=== PATIENT | male | born 1950 | race Caucasian/White ===

== ENCOUNTER → 2018-01-04 | Outpatient (CLI) | payer MEDICARE, OTHER ==
[2015-12-06 13:55] VITALS: BP 157/68
[~2018-01-04] MED LIST: ALLO300T PO; APIX5TAB PO; ASPI325T8 PO; FLEC100T PO; METO25TA4 PO
--- NOTE | 2018-01-04 14:43 | CARD ---
MR#: [id number] Date of Study: 01/04/2018 Ordering Physician: KATARINA CHRISTINE, Referring Physician: KATARINA CHRISTINE, Tech: Tonia Navarro [facility] APPROVED REPORT EXAM: Two-dimensional and M-mode echocardiogram with Doppler and color Doppler. Other Information Quality : Technically LimitedHR: 65bpm Rhythm : Atrial FibrillationTechnically limited study due to body habitus. INDICATION Atrial Fibrillation 2D DIMENSIONS RVDd3.9 (2.9-3.5cm)IVSd1.3 (0.7-1.1cm) Aortic Root(2D)3.5 (2.0-3.7cm)LVDd5.3 (3.9-5.9cm) LVOT Diameter2.2 (1.8-2.4cm)PWd1.0 (0.7-1.1cm) LVDs3.6 (2.5-4.0cm)FS (%) 31.0 % SV77.8 mlLVEF(%)58.3 (>50%) M-Mode DIMENSIONS RVDd3.07 (2.1-3.2cm)Left Atrium(MM)5.51 (2.5-4.0cm) IVSd1.27 (0.7-1.1cm)Aortic Root3.32 (2.2-3.7cm) LVDd5.37 (4.0-5.6cm)PWd1.10 (0.7-1.1cm) IVSs1.60 cmFS (%) 29 % LVDs3.81 (2.0-3.8cm)ESV(Teich)62.2 ml PWs1.47 cmLVEF(%)56 (>50%) Aortic Valve AoV Peak Nj.94.4cm/sAoV VTI17.5cm AO Peak GR.3.6mmHgLVOT Peak Nj.64.3cm/s AO Mean GR.2mmHgAVA (VMAX)2.52cm2 EVELYN (VTI)2.50cm2 Mitral Valve MV E Iezwjcdt87.5cm/sMV E Peak Gr.2mmHg MV DECEL [id number] A Pkgfoiua96.2cm/s MV E Mean Gr.0mmHgE/A Ratio2.7 MV A Hmrszyke71gv Pulmonary Valve PV Peak Leepykni84.2cm/s Tricuspid Valve TR P. Tuhccqhj434dk/sRAP JQIEYXAE3xdCg TR Peak Gr.21ebYxDJPI82qpFt LEFT VENTRICLE The left ventricle is normal size. There is mild concentric left ventricular hypertrophy. The left ve ntricular systolic function is normal and the ejection fraction is within normal range. The Ejection Fraction is 55-60%. There is normal LV segmental wall motion. Unable to assess diastolic function due to atrial fibrillation. RIGHT VENTRICLE The right ventricle is mildly dilated. There is normal right ventricular wall thickness. The right ve ntricular systolic function is normal. ATRIA The left atrium is mildly dilated. The right atrium is mildly dilated. The interatrial septum is inta ct with no evidence for an atrial septal defect or patent foramen ovale as noted on 2-D or Doppler im aging. AORTIC VALVE The aortic valve is thickened but opens well. The aortic valve is trileaflet. Doppler and Color Flow revealed no significant aortic regurgitation. There is no significant aortic valvular stenosis. MITRAL VALVE The mitral valve is thickened but opens well. There is no evidence of mitral valve prolapse. There is no mitral valve stenosis. Doppler and Color Flow revealed trace mitral valve regurgitation. TRICUSPID VALVE The tricuspid valve is normal in structure and function. Doppler and Color Flow revealed trace tricus pid regurgitation. The PA pressure was estimated at 26 mmHg. There is no tricuspid valve prolapse or vegetation. There is no tricuspid valve stenosis. PULMONIC VALVE The pulmonary valve is normal in structure and function. Doppler and Color Flow revealed no pulmonic valvular regurgitation. There is no pulmonic valvular stenosis. GREAT VESSELS The aortic root is normal in size. The ascending aorta is normal in size. PERICARDIAL EFFUSION There is no evidence of significant pericardial effusion. Critical Notification Critical Value: No <Conclusion> The left ventricle is normal size. The left ventricular systolic function is normal and the ejection fraction is within normal range. The Ejection Fraction is 55-60%. There is mild concentric left ventricular hypertrophy. There is no significant aortic valvular stenosis. Doppler and Color Flow revealed no significant aortic regurgitation. Doppler and Color Flow revealed trace mitral valve regurgitation. Doppler and Color Flow revealed trace tricuspid regurgitation. The PA pressure was estimated at 26 mmHg. Signed by : Maxwell Simon MD Electronically Approved : 01/04/2018 14:42:06
== END | disposition home or self-care (01) ==
LOC: ECHO 12:39
PROVIDERS: ATTEND Internal Medicine Cardiovascular Disease
DX: I48.91 Unspecified atrial fibrillation (principal); I51.7 Cardiomegaly
CPT/HCPCS: 93306

== ENCOUNTER → 2019-09-19 | Outpatient (CLI) | payer MEDICARE, OTHER ==
[2015-12-06 13:55] VITALS: BP 157/68
--- NOTE | 2019-09-19 11:38 | CARD ---
MR#: [id number] Date of Study: 09/19/2019 Ordering Physician: KATARINA MARTINS, Referring Physician: KATARINA MARTINS, Tech: Michelle Chaidez APPROVED REPORT EXAM: Two-dimensional and M-mode echocardiogram with Doppler and color Doppler. Other Information Quality : FairHR: 57bpm Technically limited study due to body habitus. INDICATION Atrial Fibrillation RISK FACTORS Hypertension 2D DIMENSIONS RVDd3.6 (2.9-3.5cm)Left Atrium(2D)5.3 (1.6-4.0cm) IVSd1.3 (0.7-1.1cm)Aortic Root(2D)3.4 (2.0-3.7cm) LVDd5.7 (3.9-5.9cm)LVOT Diameter2.2 (1.8-2.4cm) PWd1.4 (0.7-1.1cm)LVDs3.9 (2.5-4.0cm) FS (%) 31.4 %SV93.7 ml LVEF(%)58.5 (>50%) Aortic Valve AoV Peak Nj.101.8cm/sAoV VTI23.4cm AO Peak GR.4.1mmHgLVOT Peak Nj.72.7cm/s LVOT VTI 16.84cmAO Mean GR.2mmHg EVELYN (VMAX)1.56lo4ACF (VTI)2.66cm2 Mitral Valve MV E Dqazoxla25.5cm/sMV DECEL IJOW788iv MV A Dupuzcjw33.8cm/sMV E Mean Gr.1mmHg MV PJZ96fxS/A Ratio2.1 MVA (PHT)3.95cm2 TDI E/Lateral E'5.9E/Medial E'7.1 Pulmonary Valve PV Peak Kutzzsss21.7cm/sPV Peak Grad.2mmHg Tricuspid Valve TR P. Dtqmbamv183zk/sRAP NDLYIJNZ5oiJx TR Peak Gr.43nwMcIOPU15xiNf LEFT VENTRICLE The left ventricle is normal size. There is mild to moderate concentric left ventricular hypertrophy. The left ventricular systolic function is normal and the ejection fraction is within normal range. T he Ejection Fraction is 50-55%. There is normal LV segmental wall motion. Tissue Doppler imaging reve als moderate left ventricular diastolic dysfunction. RIGHT VENTRICLE The right ventricle is mildly dilated. There is normal right ventricular wall thickness. The right ve ntricular systolic function is normal. ATRIA The left atrium is mildly to moderatey dilated. The right atrium is mildly dilated. The interatrial s eptum is intact with no evidence for an atrial septal defect or patent foramen ovale as noted on 2-D or Doppler imaging. AORTIC VALVE The aortic valve is thickened and mildly calcified. Doppler and Color Flow revealed no significant ao rtic regurgitation. There is no significant aortic valvular stenosis. MITRAL VALVE The mitral valve is normal in structure and function. There is no evidence of mitral valve prolapse. There is no mitral valve stenosis. Doppler and Color-flow revealed trace mitral regurgitation. TRICUSPID VALVE The tricuspid valve is normal in structure and function. Doppler and Color Flow revealed trace tricus pid regurgitation with an estimated PAP of 37 mmHg. There is no tricuspid valve stenosis. PULMONIC VALVE The pulmonic valve is not well visualized. Doppler and Color Flow revealed no pulmonic valvular regur gitation. There is no pulmonic valvular stenosis. GREAT VESSELS The aortic root is normal in size. The ascending aorta is normal in size. The IVC is normal in size a nd collapses >50% with inspiration. PERICARDIAL EFFUSION There is no evidence of significant pericardial effusion. Critical Notification Critical Value: No <Conclusion> The left ventricular systolic function is normal and the ejection fraction is within normal range. Th e Ejection Fraction is 50-55%. There is normal LV segmental wall motion. Tissue Doppler imaging reveals moderate left ventricular diastolic dysfunction. The right ventricle is mildly dilated. Signed by : Katarina Martins, Electronically Approved : 09/19/2019 11:37:41
== END ==
LOC: ECHO 09:03
PROVIDERS: ATTEND Internal Medicine Cardiovascular Disease
DX: I35.8 Other nonrheumatic aortic valve disorders (principal); I48.21 Permanent atrial fibrillation
CPT/HCPCS: 93306

== ENCOUNTER → 2020-11-12 | Outpatient (CLI) | payer MEDICARE ==
[2015-12-06 13:55] VITALS: BP 157/68
[2020-11-12 09:34] LABS: BASO # 0.1 x10^3/uL (0.0-0.2); BASO % 1 % (0-3); EOS # 0.1 x10^3/uL (0.0-0.7); EOS % 1 % (0-3); HEMATOCRIT 47.4 % (39.0-53.0); LYMPH # 1.9 x10^3/uL (1.0-4.8); LYMPH % 25 % (24-48); MEAN CORPUSCULAR HEMOGLOBIN 34 pg (25-35); MEAN CORPUSCULAR HGB CONC 34 g/dL (31-37); MEAN CORPUSCULAR VOLUME 102 fL (79-100); MONO # 0.7 x10^3/uL (0.0-1.1); MONO % 9 % (0-9); NEUT # 4.9 x10^3/uL (1.8-7.7); NEUT % 64 % (31-73); PLATELET COUNT 236 x10^3/uL (140-400); RED BLOOD COUNT 4.66 x10^6/uL (4.30-5.70); RED CELL DISTRIBUTION WIDTH 12.9 % (11.5-14.5); WHITE BLOOD COUNT 7.7 x10^3/uL (4.0-11.0)
[2020-11-12 10:01] LABS: ALBUMIN 3.5 g/dL (3.4-5.0); ALBUMIN/GLOBULIN RATIO 1.1 (1.0-1.7); CALCIUM 9.2 mg/dL (8.5-10.1); CREATININE 1.2 mg/dL (0.7-1.3); POTASSIUM 5.7 mmol/L (3.5-5.1); TOTAL BILIRUBIN 0.6 mg/dL (0.2-1.0); TOTAL PROTEIN 6.6 g/dL (6.4-8.2)
[2020-11-12 10:02] LABS: CHOLESTEROL/HDL RATIO 3.1
--- NOTE | 2020-11-12 13:33 | CARD ---
MR#: [id number] Date of Study: 11/12/2020 Ordering Physician: KATARINA CHRISTINE, Referring Physician: KATARINA CHRISTINE, Tech: Elva Simpson [facility] APPROVED REPORT EXAM: Two-dimensional and M-mode echocardiogram with Doppler and color Doppler. Other Information Quality : Technically LimitedHR: 62bpm Rhythm : Atrial Fibrillation INDICATION Atrial Fibrillation RISK FACTORS Hypertension Obesity 2D DIMENSIONS RVDd3.6 (2.9-3.5cm)Left Atrium(2D)5.7 (1.6-4.0cm) IVSd1.2 (0.7-1.1cm)Aortic Root(2D)3.6 (2.0-3.7cm) LVDd5.0 (3.9-5.9cm)LVOT Diameter2.4 (1.8-2.4cm) PWd1.6 (0.7-1.1cm)LVDs3.2 (2.5-4.0cm) FS (%) 35.7 %SV77.2 ml Aortic Valve AoV Peak Nj.99.4cm/sAoV VTI25.6cm AO Peak GR.4.0mmHgLVOT Peak Nj.78.7cm/s AO Mean GR.2mmHgAVA (VMAX)3.57cm2 Mitral Valve MV E Ofewrsjk48.3cm/sMV DECEL ULLO487so MV A Ygqalemw74.1cm/sE/A Ratio5.4 Pulmonary Valve PV Peak Cgbwakug45.6cm/s Tricuspid Valve TR P. Jqvctqhi393cn/sTR Peak Gr.17mmHg LEFT VENTRICLE The left ventricle is normal size. There is trace to mild concentric left ventricular hypertrophy. Th e left ventricular systolic function is normal and the ejection fraction is within normal range. LV ejection fraction of 50 to 55%. There is normal LV segmental wall motion. RIGHT VENTRICLE The right ventricle is normal size. There is normal right ventricular wall thickness. The right ventr icular systolic function is normal. ATRIA The left atrium is moderately dilated. The right atrium is mildly dilated. The interatrial septum is intact with no evidence for an atrial septal defect or patent foramen ovale as noted on 2-D or Dopple r imaging. AORTIC VALVE The aortic valve is normal in structure and function. Doppler and Color Flow revealed no significant aortic regurgitation. There is no significant aortic valvular stenosis. MITRAL VALVE The mitral valve is normal in structure and function. There is no evidence of mitral valve prolapse. There is no mitral valve stenosis. Doppler and Color-flow revealed trace to mild mitral regurgitation . TRICUSPID VALVE The tricuspid valve is normal in structure and function. Doppler and Color Flow revealed trace tricus pid regurgitation. Estimated PAP 20 mmHg. There is no tricuspid valve stenosis. PULMONIC VALVE The pulmonary valve is normal in structure and function. Doppler and Color Flow revealed no pulmonic valvular regurgitation. GREAT VESSELS The aortic root is normal in size. The ascending aorta is normal in size. The IVC is normal in size a nd collapses >50% with inspiration. PERICARDIAL EFFUSION There is no evidence of significant pericardial effusion. Critical Notification Critical Value: No <Conclusion> The left ventricle is normal size. The left ventricular systolic function is normal and the ejection fraction is within normal range. LV ejection fraction of 50 to 55%. There is trace to mild concentric left ventricular hypertrophy. Doppler and Color Flow revealed no significant aortic regurgitation. There is no significant aortic valvular stenosis. Doppler and Color-flow revealed trace to mild mitral regurgitation. Doppler and Color Flow revealed trace tricuspid regurgitation. Estimated PAP 20 mmHg. Signed by : Maxwell Simon MD Electronically Approved : 11/12/2020 13:32:49
== END ==
LOC: ECHO 07:44
PROVIDERS: ATTEND Internal Medicine Cardiovascular Disease
DX: I34.0 Nonrheumatic mitral (valve) insufficiency (principal); I51.7 Cardiomegaly; I10 Essential (primary) hypertension; I42.9 Cardiomyopathy, unspecified
CPT/HCPCS: 36415; 80053; 80061; 83880; 85025; 93306